=== PATIENT | male | born 1985 | race Caucasian/White ===

== ENCOUNTER 2017-12-19 11:53 | Emergency (ER) | payer SELFPAY ==
[~2017-12-19] VITALS: Ht 175.3 cm; Wt 103.7 kg
[~2017-12-19 11:53] MED LIST: PROVENTIL IN; [UNRECOGNIZED DRUG - REMARK]; [UNRECOGNIZED DRUG - REMARK]
[2017-12-19] MEDS ORDERED: PROVENTIL HFA IN (13:09)
[2017-12-19] MEDS ORDERED: VALACYCLOVIR HCL1 GM PO (14:07)
[2017-12-19] MEDS ORDERED: PREDNISONE20 MG PO (14:07)
[2017-12-19 14:11] VITALS: BP 130/78
== END 2017-12-19 14:10 | disposition home or self-care (01) | DRG 74 ==
LOC: ED 11:53
DX: G51.0 Bell's palsy (principal); J45.909 Unspecified asthma, uncomplicated